=== PATIENT | female | born 1970 | race Caucasian/White ===

== ENCOUNTER 2021-07-26 08:53 | Inpatient (IN) | payer BC, MEDICARE, SELFPAY ==
[~2021-07-26] VITALS: Ht 165.1 cm; Wt 68.0 kg
[2021-07-26] VITALS (17 sets, daily range): BP systolic 130–192; BP diastolic 60–81
[2021-07-26] MEDS ORDERED: NS 1,000 ML IV ONE (09:00)
[2021-07-26 09:18] LABS: VENOUS BASE EXCESS -25.4 (-2.0-2.0); VENOUS HCO3 5.4 MEQ/L (23.0-27.0); VENOUS O2 SATURATION 86.5 % (60.0-80.0); VENOUS PARTIAL PRESSURE CO2 24.8 mmHg (38.0-50.0); VENOUS PARTIAL PRESSURE O2 70.8 mmHg (30.0-50.0); VENOUS PH 6.955 UNITS (7.330-7.430); VENOUS STANDARD HCO3 6.8 MEQ/L; VENOUS TOTAL CO2 6.2 MEQ/L (24.0-28.0)
[2021-07-26 09:25] LABS: BASO # 0.1 10^3/uL (0.0-0.2); BASO % 0.5 % (0.0-1.0); HEMATOCRIT 38.5 % (36.0-47.0); HEMOGLOBIN 11.7 g/dl (12.0-15.5); LYMPH # 2.1 10^3/uL (1.5-5.0); LYMPH % 8.2 % (24.0-44.0); MEAN CORPUSCULAR HEMOGLOBIN 30.7 pg (27.0-33.0); MEAN CORPUSCULAR HGB CONC 30.4 g/dl (32.0-36.5); MONO # 1.4 10^3/uL (0.0-0.8); MONO % 5.5 % (2.0-8.0); NEUTROPHILS # 21.2 10^3/uL (1.5-8.5); NEUTROPHILS % 84.6 % (36.0-66.0); PLATELET COUNT, AUTOMATED 480 10^3/uL (150-450); RED BLOOD COUNT 3.81 10^6/uL (4.00-5.40); WHITE BLOOD COUNT 25.1 10^3/uL (4.0-10.0)
[2021-07-26] MEDS ORDERED: INSULIN REGULAR IN 0.9 % NACL 100 UNIT in IV 1 EA IV SCH ×2 (09:30)
[2021-07-26] MEDS ORDERED: HumuLIN R (REGULAR) INSULIN (NovoLIN R) **100U/ML** PER UNIT IV ONE (09:30)
[2021-07-26] MEDS ORDERED: PIPERACILLIN/TAZOBACTAM SOD 4.5 GM in D5W MINI-BAG PLUS 50 ML IV ONE (09:30)
[2021-07-26] MEDS ORDERED: NS 1,250 ML in IV 1 EA IV ONE (09:30)
[2021-07-26] MEDS ORDERED: ISOVUE-370 76% 100ML VIAL As Ordered ONE (09:53)
[2021-07-26 09:54] LABS: CK-MB VALUE MASS 2.7 NG/ML (<3.6); MB/CK RELATIVE INDEX 4.43 (< OR =4)
[2021-07-26 10:01] LABS: RSV AMPLIFICATION NEGATIVE (NEGATIVE)
[2021-07-26 10:11] LABS: OSMOLALITY SERUM 346 MOSM/KG (275-295)
[2021-07-26 10:40] LABS: ACETONE/KETONE > 46.00 MG/DL (<2.81); ALBUMIN 3.6 GM/DL (3.2-5.2); ALT/SGPT 21 U/L (12-78); BILIRUBIN,DIRECT 0.2 MG/DL (0.0-0.2); BILIRUBIN,TOTAL 0.5 MG/DL (0.2-1.0); BLOOD UREA NITROGEN 33 MG/DL (7-18); CALCIUM LEVEL 10.7 MG/DL (8.5-10.1); CARBON DIOXIDE LEVEL 8 MEQ/L (21-32); CHLORIDE LEVEL 93 MEQ/L (98-107); CREATININE FOR GFR 2.25 MG/DL (0.55-1.30); ETHYL ALCOHOL (ETHANOL) < 0.003 % (0.000-0.010); GLOMERULAR FILTRATION RATE 24.3 (>51); GLUCOSE, FASTING 855 MG/DL (70-100); LIPASE 57 U/L (73-393); MAGNESIUM LEVEL 2.3 MG/DL (1.8-2.4); PHOSPHORUS LEVEL 8.5 MG/DL (2.5-4.9); POTASSIUM SERUM 5.5 MEQ/L (3.5-5.1); SODIUM LEVEL 130 MEQ/L (136-145); TOTAL PROTEIN 7.1 GM/DL (6.4-8.2)
[2021-07-26 11:37] LABS: VENOUS BASE EXCESS -28.1 (-2.0-2.0); VENOUS HCO3 4.6 MEQ/L (23.0-27.0); VENOUS PARTIAL PRESSURE CO2 26.1 mmHg (38.0-50.0); VENOUS PARTIAL PRESSURE O2 60.8 mmHg (30.0-50.0); VENOUS PH 6.861 UNITS (7.330-7.430); VENOUS STANDARD HCO3 5.2 MEQ/L; VENOUS TOTAL CO2 5.4 MEQ/L (24.0-28.0)
[2021-07-26] MEDS ORDERED: CALC500T38 PO (11:37)
[2021-07-26] MEDS ORDERED: FAMO1TAB11 PO (11:37)
[2021-07-26] MEDS ORDERED: LEVO88TA24 PO (11:37)
[2021-07-26] MEDS ORDERED: AMLO1TAB24 PO (11:37)
[2021-07-26] MEDS ORDERED: COLA100C5 PO (11:37)
[2021-07-26] MEDS ORDERED: METO1TAB7 PO (11:37)
[2021-07-26] MEDS ORDERED: HYDR-3911 PO (11:37)
[2021-07-26] MEDS ORDERED: FERR1TAB8 PO (11:37)
[2021-07-26] MEDS ORDERED: ADME100I2 SC (11:37)
[2021-07-26] MEDS ORDERED: BASA100I SC (11:37)
[2021-07-26] MEDS ORDERED: PANT-23 PO (11:37)
[2021-07-26] MEDS ORDERED: PATIENT COMMENT (11:38)
[2021-07-26] MEDS ORDERED: HOME MED LIST COMPLETE! XX SCH (11:40)
[2021-07-26] MEDS ORDERED: INSULIN IV RATE CHANGE DOCUMENTATION ML/HR XX SCH (11:50)
[2021-07-26 12:07] LABS: HEMOGLOBIN A1c 7.9 %
[2021-07-26 12:13] LABS: CALCIUM LEVEL 9.6 MG/DL (8.5-10.1); CREATININE FOR GFR 2.32 MG/DL (0.55-1.30); GLOMERULAR FILTRATION RATE 23.5 (>51); POTASSIUM SERUM 4.4 MEQ/L (3.5-5.1)
[2021-07-26] MEDS: INSULIN REGULAR IN 0.9 % NACL 100 UNIT in IV 1 EA IV SCH ×4 (12:25→19:08)
[2021-07-26] MEDS: NS 1,000 ML IV SCH ×2 (12:26→16:05)
[2021-07-26 12:45] LABS: AMPHETAMINES LEVEL URINE NEGATIVE (NEGATIVE); BARBITURATES URINE NEGATIVE (NEGATIVE); BENZODIAZEPINES URINE NEGATIVE (NEGATIVE); CANNABINOIDS URINE POSITIVE (NEGATIVE); COCAINE METABOLITE URINE POSITIVE (NEGATIVE); METHADONE URINE NEGATIVE (NEGATIVE); OPIATES URINE NEGATIVE (NEGATIVE); PHENCYCLIDINE URINE NEGATIVE (NEGATIVE)
[2021-07-26] MEDS ORDERED: SODIUM CHLORIDE 0.9% 1000ML IV ONE (12:45)
[2021-07-26] MEDS: PANTOPRAZOLE 40MG VIAL IV SCH (14:54)
[2021-07-26 15:14] LABS: VENOUS BASE EXCESS -20.8 (-2.0-2.0); VENOUS HCO3 6.7 MEQ/L (23.0-27.0); VENOUS O2 SATURATION 91.6 % (60.0-80.0); VENOUS PARTIAL PRESSURE CO2 20.8 mmHg (38.0-50.0); VENOUS PARTIAL PRESSURE O2 68.9 mmHg (30.0-50.0); VENOUS PH 7.124 UNITS (7.330-7.430); VENOUS STANDARD HCO3 9.2 MEQ/L; VENOUS TOTAL CO2 7.3 MEQ/L (24.0-28.0)
[2021-07-26] MEDS ORDERED: ONDANSETRON 4MG/2ML VIAL IV PRN (15:30)
[2021-07-26 15:51] LABS: CALCIUM LEVEL 9.9 MG/DL (8.5-10.1); CREATININE FOR GFR 1.91 MG/DL (0.55-1.30); GLOMERULAR FILTRATION RATE 29.4 (>51); PHOSPHORUS LEVEL 3.3 MG/DL (2.5-4.9); POTASSIUM SERUM 4.2 MEQ/L (3.5-5.1)
[2021-07-26] MEDS: INSULIN IV RATE CHANGE DOCUMENTATION ML/HR XX SCH ×6 (16:03→23:01)
[2021-07-26] MEDS: ACETAMINOPHEN TAB 650MG DOSE (2X325MG) PO PRN (16:58)
[2021-07-26] MEDS: NYSTATIN OINTMENT 15 GM TOP SCH (17:35)
[2021-07-26 20:11] LABS: CALCIUM LEVEL 9.7 MG/DL (8.5-10.1); CREATININE FOR GFR 1.62 MG/DL (0.55-1.30); GLOMERULAR FILTRATION RATE 35.5 (>51); POTASSIUM SERUM 3.7 MEQ/L (3.5-5.1)
[2021-07-26 20:19] LABS: ALBUMIN 2.9 GM/DL (3.2-5.2); BILIRUBIN,TOTAL 0.3 MG/DL (0.2-1.0); CALCIUM LEVEL 9.7 MG/DL (8.5-10.1); CREATININE FOR GFR 1.58 MG/DL (0.55-1.30); GLOMERULAR FILTRATION RATE 36.6 (>51); POTASSIUM SERUM 3.6 MEQ/L (3.5-5.1); TOTAL PROTEIN 6.1 GM/DL (6.4-8.2)
[2021-07-26] MEDS: KCL 20MEQ IN D5/0.45NS 1000ML 1,000 ML IV SCH (21:40)
[2021-07-26] MEDS ORDERED: POTASSIUM PHOSPHATE INJ 30 MMOL in D5W 500 ML IV ONE (22:00)
[2021-07-27] VITALS (21 sets, daily range): BP systolic 110–199; BP diastolic 52–86
[2021-07-27] MEDS: INSULIN IV RATE CHANGE DOCUMENTATION ML/HR XX SCH ×5 (00:06→09:06)
[2021-07-27 00:15] LABS: ABG BASE EXCESS -7.3 (-2.0-2.0); ABG HCO3 17.4 MEQ/L (22.0-26.0); ABG O2 SATURATION 91.3 % (95.0-99.0); ABG PARTIAL PRESSURE CO2 32.3 mmHg (35.0-45.0); ABG PARTIAL PRESSURE O2 59.6 mmHg (75.0-100.0); ABG STANDARD HCO3 18.4 MEQ/L (22.0-26.0); ABG TOTAL CO2 18.4 MEQ/L (22.0-29.0); ABG pH (ARTERIAL) 7.349 UNITS (7.350-7.450)
[2021-07-27 00:39] LABS: CALCIUM LEVEL 9.4 MG/DL (8.5-10.1); CREATININE FOR GFR 1.44 MG/DL (0.55-1.30); GLOMERULAR FILTRATION RATE 40.7 (>51); PHOSPHORUS LEVEL 2.6 MG/DL (2.5-4.9); POTASSIUM SERUM 3.6 MEQ/L (3.5-5.1)
[2021-07-27] MEDS: ACETAMINOPHEN TAB 650MG DOSE (2X325MG) PO PRN (01:07)
[2021-07-27] MEDS: KCL 20MEQ IN D5/0.45NS 1000ML 1,000 ML IV SCH ×2 (02:14→06:52)
[2021-07-27] MEDS ORDERED: CHLORASEPTIC SPRAY MT ONE (02:45)
[2021-07-27] MEDS: NYSTATIN OINTMENT 15 GM TOP SCH (04:05)
[2021-07-27 04:07] LABS: BASO % 0.1 % (0.0-1.0); HEMATOCRIT 27.5 % (36.0-47.0); LYMPH # 1.9 10^3/uL (1.5-5.0); LYMPH % 9.2 % (24.0-44.0); MEAN CORPUSCULAR HEMOGLOBIN 30.2 pg (27.0-33.0); MEAN CORPUSCULAR HGB CONC 33.5 g/dl (32.0-36.5); MEAN CORPUSCULAR VOLUME 90.2 fl (80.0-96.0); MONO % 10.7 % (2.0-8.0); NEUTROPHILS # 16.1 10^3/uL (1.5-8.5); NEUTROPHILS % 79.4 % (36.0-66.0); RED BLOOD COUNT 3.05 10^6/uL (4.00-5.40); WHITE BLOOD COUNT 20.3 10^3/uL (4.0-10.0)
[2021-07-27 04:11] LABS: MONO # 2.2 10^3/uL (0.0-0.8)
[2021-07-27 04:24] LABS: HEMOGLOBIN 9.2 g/dl (12.0-15.5); PLATELET COUNT, AUTOMATED 325 10^3/uL (150-450)
[2021-07-27 04:31] LABS: CALCIUM LEVEL 9.5 MG/DL (8.5-10.1); CREATININE FOR GFR 1.24 MG/DL (0.55-1.30); GLOMERULAR FILTRATION RATE 48.4 (>51); PHOSPHORUS LEVEL 2.9 MG/DL (2.5-4.9); POTASSIUM SERUM 3.6 MEQ/L (3.5-5.1)
[2021-07-27 06:40] LABS: CALCIUM LEVEL 9.7 MG/DL (8.5-10.1); CREATININE FOR GFR 1.17 MG/DL (0.55-1.30); GLOMERULAR FILTRATION RATE 51.7 (>51); POTASSIUM SERUM 3.6 MEQ/L (3.5-5.1)
[2021-07-27] MEDS ORDERED: LEVEMIR (INSULIN DETEMIR) 1 UNITS/0.01ML SC SCH (09:00)
[2021-07-27] MEDS: PANTOPRAZOLE 40MG VIAL IV SCH (09:05)
[2021-07-27] MEDS ORDERED: GLUCAGON INJ 1MG VIAL SC PRN (09:25)
[2021-07-27] MEDS ORDERED: GLUCOSE 4GM CHEW TABLET PO PRN (09:25)
[2021-07-27] MEDS: LEVOTHYROXINE 88MCG TABLET (0.088 MG) PO SCH (11:41)
[2021-07-27] MEDS: METOPROLOL SUCC (TopROL XL) 50MG **XL** TAB PO SCH (11:43)
[2021-07-27] MEDS: INSULIN LISPRO (NovoLOG) PER UNIT SC SCH ×2 (11:43→17:30)
[2021-07-27 12:17] LABS: CREATININE FOR GFR 1.03 MG/DL (0.55-1.30); GLOMERULAR FILTRATION RATE 59.9 (>51); POTASSIUM SERUM 3.8 MEQ/L (3.5-5.1)
[2021-07-27] MEDS: HEPARIN SOD (PORCINE) 5000UNITS/ML 1ML VIAL/SYRINGE SQ SCH ×2 (13:46→22:00)
[2021-07-27] MEDS ORDERED: FLUCONAZOLE 50MG TABLET PO ONE (17:00)
[2021-07-27] MEDS: DEXTROSE 50% 50 ML SYRINGE IV PRN (17:38)
[2021-07-27] MEDS ORDERED: DEXTROSE 50% 50 ML SYRINGE IV STA (17:45)
[2021-07-27] MEDS ORDERED: INSULIN LISPRO (NovoLOG) PER UNIT SC SCH (21:00)
[2021-07-27] MEDS ORDERED: MICONAZOLE-7 VAGINAL 2% CREAM 47.7GM PV SCH (21:00)
[2021-07-28] MEDS: HEPARIN SOD (PORCINE) 5000UNITS/ML 1ML VIAL/SYRINGE SQ SCH (05:37)
[2021-07-28] MEDS: LEVOTHYROXINE 88MCG TABLET (0.088 MG) PO SCH (05:37)
[2021-07-28 06:00] VITALS: BP 164/91
[2021-07-28] MEDS: DEXTROSE 50% 50 ML SYRINGE IV PRN (06:01)
[2021-07-28 07:04] LABS: BASO % 0.3 % (0.0-1.0); EOS % 0.4 % (0.0-3.0); HEMATOCRIT 29.5 % (36.0-47.0); LYMPH # 2.4 10^3/uL (1.5-5.0); LYMPH % 23.8 % (24.0-44.0); MEAN CORPUSCULAR HEMOGLOBIN 30.6 pg (27.0-33.0); MEAN CORPUSCULAR HGB CONC 33.9 g/dl (32.0-36.5); MEAN CORPUSCULAR VOLUME 90.2 fl (80.0-96.0); MONO # 0.8 10^3/uL (0.0-0.8); MONO % 7.7 % (2.0-8.0); NEUTROPHILS # 6.8 10^3/uL (1.5-8.5); NEUTROPHILS % 67.5 % (36.0-66.0); PLATELET COUNT, AUTOMATED 285 10^3/uL (150-450); RED BLOOD COUNT 3.27 10^6/uL (4.00-5.40)
[2021-07-28] MEDS: INSULIN LISPRO (NovoLOG) PER UNIT SC SCH ×2 (07:30→12:57)
[2021-07-28 07:33] LABS: BLOOD UREA NITROGEN 5 MG/DL (7-18); CALCIUM LEVEL 10.3 MG/DL (8.5-10.1); CARBON DIOXIDE LEVEL 25 MEQ/L (21-32); CHLORIDE LEVEL 107 MEQ/L (98-107); CREATININE FOR GFR 0.88 MG/DL (0.55-1.30); GLOMERULAR FILTRATION RATE > 60.0 (>51); GLUCOSE, FASTING 169 MG/DL (70-100); MAGNESIUM LEVEL 1.8 MG/DL (1.8-2.4); PHOSPHORUS LEVEL 2.3 MG/DL (2.5-4.9); POTASSIUM SERUM 3.4 MEQ/L (3.5-5.1); SODIUM LEVEL 141 MEQ/L (136-145)
[2021-07-28] MEDS ORDERED: POTASSIUM CHLORIDE 10MEQ SR TABLET PO ONE (08:00)
[2021-07-28 08:50] VITALS: BP 139/84
[2021-07-28] MEDS: PANTOPRAZOLE 40MG VIAL IV SCH (08:50)
[2021-07-28] MEDS: METOPROLOL SUCC (TopROL XL) 50MG **XL** TAB PO SCH (08:50)
[2021-07-28] MEDS ORDERED: LEVEMIR (INSULIN DETEMIR) 1 UNITS/0.01ML SC SCH ×2 (09:00)
[2021-07-28 10:00] VITALS: BP 126/81
[2021-07-28] MEDS ORDERED: BASA100I SC (11:39)
[2021-07-28 14:00] VITALS: BP 132/82
== END 2021-07-28 13:20 | disposition home or self-care (01) | DRG 420 ==
LOC: M ED 08:53 → M ED INP 11:46 → ENRESERV 13:32 → M ICU 14:19 → M MSPAV 07-27 18:46
PROVIDERS: ADMIT Internal Medicine Pulmonary Disease; ATTEND Family Medicine
DX: E11.10 Type 2 diabetes mellitus with ketoacidosis without coma (principal); I10 Essential (primary) hypertension; B37.3 Candidiasis of vulva and vagina; E03.9 Hypothyroidism, unspecified; R94.31 Abnormal electrocardiogram [ECG] [EKG]; D64.9 Anemia, unspecified; E11.649 Type 2 diabetes mellitus with hypoglycemia without coma; Z79.4 Long term (current) use of insulin; Z79.899 Other long term (current) drug therapy; Z91.11 Patient's noncompliance with dietary regimen; Z86.16 Personal history of COVID-19

== ENCOUNTER 2023-06-28 10:46 | Inpatient (IN) | payer MEDICAID, OTHER ==
[~2023-06-28] VITALS: Ht 165.1 cm; Wt 64.8 kg
[~2023-06-28 10:46] MED LIST: ACET-897 PO; ADME100I2 SC; AMLO1TAB24 PO; AMOX875T2 PO; BASA100I SC; CALC500T38 PO; COLA100C5 PO; FAMO1TAB11 PO; FERR1TAB8 PO; HYDR50TA46 PO; LEVO88TA24 PO; LISI5TAB11 PO; METO1TAB7 PO; PANT-23 PO; PATIENT COMMENT
[2023-06-28] MEDS: NS 1,000 ML IV ONE (11:33)
[2023-06-28 11:44] LABS: BASO % 0.2 % (0.0-1.0); EOS % 0.1 % (0.0-3.0); HEMATOCRIT 39.2 % (36.0-47.0); HEMOGLOBIN 13.1 g/dl (12.0-15.5); LYMPH # 1.8 10^3/uL (1.5-5.0); LYMPH % 10.4 % (24.0-44.0); MEAN CORPUSCULAR HEMOGLOBIN 30.8 pg (27.0-33.0); MEAN CORPUSCULAR HGB CONC 33.4 g/dl (32.0-36.5); MONO # 0.7 10^3/uL (0.0-0.8); MONO % 3.8 % (2.0-8.0); NEUTROPHILS # 14.9 10^3/uL (1.5-8.5); PLATELET COUNT, AUTOMATED 447 10^3/uL (150-450); RED BLOOD COUNT 4.26 10^6/uL (4.00-5.40); WHITE BLOOD COUNT 17.5 10^3/uL (4.0-10.0)
[2023-06-28] MEDS: ONDANSETRON 4MG 2ML VIAL IV ONE (12:00)
[2023-06-28] MEDS: PANTOPRAZOLE 40MG VIAL IV STA (12:01)
[2023-06-28 12:11] LABS: LIPASE 29 U/L (12-53)
[2023-06-28 12:12] LABS: MAGNESIUM LEVEL 2.1 MG/DL (1.8-2.4)
[2023-06-28 12:14] LABS: ALBUMIN 4.2 G/DL (3.2-5.2); ALKALINE PHOSPHATASE 148 U/L (46-116); ALT/SGPT 23 U/L (7.0-40); AST/SGOT 15 U/L (<34); BILIRUBIN,TOTAL 0.5 MG/DL (0.3-1.2); BLOOD UREA NITROGEN 22 MG/DL (9-23); CARBON DIOXIDE LEVEL 15 MMOL/L (20-31); CHLORIDE LEVEL 102 MMOL/L (98-107); CREATININE FOR GFR 0.89 MG/DL (0.55-1.30); GLOMERULAR FILTRATION RATE > 60.0 (>51); GLUCOSE, FASTING 195 MG/DL (60-100); POTASSIUM SERUM 4.4 MMOL/L (3.5-5.1); SODIUM LEVEL 138 MMOL/L (136-145); TOTAL PROTEIN 7.9 G/DL (5.7-8.2)
[2023-06-28 12:20] LABS: VENOUS BASE EXCESS -12.4 (-2.0-2.0); VENOUS HCO3 14.5 MMOL/L (23.0-27.0); VENOUS PARTIAL PRESSURE CO2 36.5 mmHg (38.0-50.0); VENOUS PARTIAL PRESSURE O2 42.9 mmHg (30.0-50.0); VENOUS PH 7.217 UNITS (7.330-7.430); VENOUS STANDARD HCO3 14.5 MMOL/L; VENOUS TOTAL CO2 15.6 MMOL/L (24.0-28.0)
[2023-06-28] MEDS: D5W/0.45% SODIUM CHLORIDE 1,000 ML IV ONE (12:45)
[2023-06-28] MEDS: KCL 10MEQ/100ML SWI (KRUN) 10 MEQ in IV 1 EA IV ONE (13:13)
[2023-06-28 13:26] LABS: HEMOGLOBIN A1c 7.8 % (4.0-6.0)
[2023-06-28 13:29] LABS: THYROID STIMULATING HORMONE 0.476 uIU/ML (0.55-4.78)
[2023-06-28] MEDS ORDERED: ONDANSETRON 4MG 2ML VIAL IV PRN (13:35)
[2023-06-28] MEDS: INSULIN REGULAR IN 0.9 % NACL 100 UNIT in IV 1 EA IV SCH (13:45)
[2023-06-28] MEDS: cefTRIAXone SOD 1 GM in D5W MINI-BAG PLUS 50 ML IV ONE (13:55)
[2023-06-28 14:00] LABS: VENOUS BASE EXCESS -14.8 (-2.0-2.0); VENOUS HCO3 11.8 MMOL/L (23.0-27.0); VENOUS O2 SATURATION 97.9 % (60.0-80.0); VENOUS PARTIAL PRESSURE CO2 30.2 mmHg (38.0-50.0); VENOUS PARTIAL PRESSURE O2 113.2 mmHg (30.0-50.0); VENOUS PH 7.208 UNITS (7.330-7.430); VENOUS STANDARD HCO3 13.2 MMOL/L; VENOUS TOTAL CO2 12.7 MMOL/L (24.0-28.0)
[2023-06-28] MEDS: LR 1,000 ML IV ONE (14:32)
[2023-06-28] MEDS: hydrALAZINE 20MG/ML 1ML VIAL IV PRN (14:36)
[2023-06-28 15:30] VITALS: TEMP 98.8; O2SAT 100
[2023-06-28] MEDS: INSULIN IV RATE CHANGE DOCUMENTATION ML/HR XX SCH (15:43)
[2023-06-28 15:45] VITALS: O2SAT 99
[2023-06-28] MEDS: POTASSIUM CHLORIDE INJ 40 MEQ in D5W/LR 1,000 ML IV SCH (15:58)
[2023-06-28 16:00] VITALS: O2SAT 99
[2023-06-28 16:15] VITALS: O2SAT 98
[2023-06-28 16:29] LABS: BLOOD UREA NITROGEN 18 MG/DL (9-23); CALCIUM LEVEL 10.6 MG/DL (8.5-10.1); CARBON DIOXIDE LEVEL 14 MMOL/L (20-31); CHLORIDE LEVEL 105 MMOL/L (98-107); CREATININE FOR GFR 0.79 MG/DL (0.55-1.30); GLOMERULAR FILTRATION RATE > 60.0 (>51); GLUCOSE, FASTING 188 MG/DL (60-100); PHOSPHORUS LEVEL 2.1 MG/DL (2.5-4.9); POTASSIUM SERUM 4.2 MMOL/L (3.5-5.1); SODIUM LEVEL 139 MMOL/L (136-145)
[2023-06-28] MEDS ORDERED: D10W 1,000 ML IV SCH (17:00)
[2023-06-28] MEDS: D10W 1,000 ML IV SCH (17:36)
[2023-06-28 20:00] VITALS: BP 168/70; TEMP 98.2; O2SAT 99
[2023-06-28 20:19] LABS: BLOOD UREA NITROGEN 16 MG/DL (9-23); CALCIUM LEVEL 10.6 MG/DL (8.5-10.1); CARBON DIOXIDE LEVEL 21 MMOL/L (20-31); CHLORIDE LEVEL 104 MMOL/L (98-107); CREATININE FOR GFR 0.72 MG/DL (0.55-1.30); GLOMERULAR FILTRATION RATE > 60.0 (>51); GLUCOSE, FASTING 220 MG/DL (60-100); PHOSPHORUS LEVEL 1.6 MG/DL (2.5-4.9); POTASSIUM SERUM 3.9 MMOL/L (3.5-5.1); SODIUM LEVEL 137 MMOL/L (136-145)
[2023-06-28] MEDS ORDERED: GLUCAGON INJ 1MG VIAL SC PRN (20:35)
[2023-06-28] MEDS ORDERED: DEXTROSE 50% 50ML SYRINGE IV PRN (20:35)
[2023-06-28] MEDS ORDERED: GLUCOSE 4 GM CHEW PO PRN (20:35)
[2023-06-28] MEDS: POTASSIUM PHOSPHATE INJ 20 MMOL in D5W 250 ML IV ONE (20:43)
[2023-06-28] MEDS: LEVEMIR (INSULIN DETEMIR) 1 UNITS/0.01ML SC ONE (20:52)
[2023-06-28] MEDS: INSULIN LISPRO (NovoLOG) PER UNIT SC SCH (21:00)
[2023-06-28] MEDS: LEVEMIR (INSULIN DETEMIR) 1 UNITS/0.01ML SC SCH (21:00)
[2023-06-28] MEDS: ENOXAPARIN 40MG/0.4ML SYRINGE (J1650 PER 10MG) SC SCH (21:00)
[2023-06-28 21:51] VITALS: BP 113/51; O2SAT 97
[2023-06-29] VITALS: BP 150/74; TEMP 98.8; O2SAT 97
[2023-06-29 00:21] LABS: BLOOD UREA NITROGEN 10 MG/DL (9-23); CALCIUM LEVEL 10.6 MG/DL (8.5-10.1); CARBON DIOXIDE LEVEL 24 MMOL/L (20-31); CHLORIDE LEVEL 103 MMOL/L (98-107); CREATININE FOR GFR 0.63 MG/DL (0.55-1.30); GLOMERULAR FILTRATION RATE > 60.0 (>51); GLUCOSE, FASTING 116 MG/DL (60-100); PHOSPHORUS LEVEL 2.5 MG/DL (2.5-4.9); POTASSIUM SERUM 4.3 MMOL/L (3.5-5.1); SODIUM LEVEL 134 MMOL/L (136-145)
[2023-06-29 04:10] VITALS: BP 166/79; TEMP 98.3; O2SAT 99
[2023-06-29 04:21] LABS: BLOOD UREA NITROGEN 10 MG/DL (9-23); CALCIUM LEVEL 10.7 MG/DL (8.5-10.1); CARBON DIOXIDE LEVEL 23 MMOL/L (20-31); CHLORIDE LEVEL 105 MMOL/L (98-107); CREATININE FOR GFR 0.64 MG/DL (0.55-1.30); GLOMERULAR FILTRATION RATE > 60.0 (>51); GLUCOSE, FASTING 143 MG/DL (60-100); PHOSPHORUS LEVEL 2.6 MG/DL (2.5-4.9); POTASSIUM SERUM 4.3 MMOL/L (3.5-5.1); SODIUM LEVEL 138 MMOL/L (136-145)
[2023-06-29] MEDS: LEVOTHYROXINE 88MCG TABLET (0.088 MG) PO SCH (05:52)
[2023-06-29 05:55] VITALS: BP 138/73; O2SAT 98
[2023-06-29] MEDS ORDERED: MED REC IN PROGRESS XX SCH (07:30)
[2023-06-29 08:00] VITALS: BP 159/74; TEMP 98.9; O2SAT 98
[2023-06-29] MEDS ORDERED: INSU100I48 INJ (08:21)
[2023-06-29] MEDS ORDERED: LISI5TAB11 PO (08:21)
[2023-06-29] MEDS ORDERED: PANT40TA29 PO (08:21)
[2023-06-29] MEDS ORDERED: MULT-110 PO (08:21)
[2023-06-29] MEDS ORDERED: INSU100I24 INJ (08:21)
[2023-06-29] MEDS ORDERED: HOME MED LIST COMPLETE! XX SCH (08:25)
[2023-06-29] MEDS: INSULIN LISPRO (NovoLOG) PER UNIT SC SCH ×2 (08:48→17:30)
[2023-06-29] MEDS ORDERED: PANTOPRAZOLE 40MG VIAL IV SCH (09:00)
[2023-06-29] MEDS: LEVEMIR (INSULIN DETEMIR) 1 UNITS/0.01ML SC SCH (09:50)
[2023-06-29] MEDS: lisinopriL 5 MG TAB PO SCH (09:51)
[2023-06-29 12:00] VITALS: BP 143/73; TEMP 99; O2SAT 97
[2023-06-29 12:58] LABS: BASO # 0.1 10^3/uL (0.0-0.2); BASO % 0.4 % (0.0-1.0); EOS # 0.1 10^3/uL (0.0-0.5); EOS % 0.6 % (0.0-3.0); HEMATOCRIT 33.2 % (36.0-47.0); HEMOGLOBIN 11.2 g/dl (12.0-15.5); MEAN CORPUSCULAR HEMOGLOBIN 30.3 pg (27.0-33.0); MEAN CORPUSCULAR HGB CONC 33.7 g/dl (32.0-36.5); MEAN CORPUSCULAR VOLUME 89.7 fl (80.0-96.0); MONO # 0.8 10^3/uL (0.0-0.8); MONO % 6.8 % (2.0-8.0); NEUTROPHILS # 8.4 10^3/uL (1.5-8.5); NEUTROPHILS % 67.8 % (36.0-66.0); PLATELET COUNT, AUTOMATED 340 10^3/uL (150-450); WHITE BLOOD COUNT 12.4 10^3/uL (4.0-10.0)
[2023-06-29 13:20] LABS: PTH INTACT 61.5 PG/ML (18.5-88.0)
[2023-06-29 13:24] LABS: THYROXINE (T4) 9.3 UG/DL (4.5-10.9); TOTAL 25(OH) VITAMIN D 26.9 NG/ML (20.0-100.0)
[2023-06-29 13:25] LABS: FREE T4 1.2 NG/DL (0.89-1.76)
[2023-06-29 20:11] VITALS: BP 136/78; TEMP 98; O2SAT 99
[2023-06-30 05:07] LABS: BASO % 0.6 % (0.0-1.0); EOS # 0.2 10^3/uL (0.0-0.5); EOS % 2.1 % (0.0-3.0); LYMPH # 3.5 10^3/uL (1.5-5.0); LYMPH % 48.6 % (24.0-44.0); MEAN CORPUSCULAR HEMOGLOBIN 30.1 pg (27.0-33.0); MEAN CORPUSCULAR HGB CONC 33.3 g/dl (32.0-36.5); MEAN CORPUSCULAR VOLUME 90.4 fl (80.0-96.0); MONO # 0.6 10^3/uL (0.0-0.8); NEUTROPHILS % 40.6 % (36.0-66.0); PLATELET COUNT, AUTOMATED 333 10^3/uL (150-450); RED BLOOD COUNT 3.65 10^6/uL (4.00-5.40); WHITE BLOOD COUNT 7.3 10^3/uL (4.0-10.0)
[2023-06-30 05:27] LABS: BLOOD UREA NITROGEN 11 MG/DL (9-23); CALCIUM LEVEL 10.9 MG/DL (8.5-10.1); CARBON DIOXIDE LEVEL 29 MMOL/L (20-31); CHLORIDE LEVEL 102 MMOL/L (98-107); CREATININE FOR GFR 0.68 MG/DL (0.55-1.30); GLOMERULAR FILTRATION RATE > 60.0 (>51); GLUCOSE, FASTING 60 MG/DL (60-100); MAGNESIUM LEVEL 1.8 MG/DL (1.8-2.4); SODIUM LEVEL 138 MMOL/L (136-145)
[2023-06-30 05:59] VITALS: BP 160/81; TEMP 97.8; O2SAT 99
[2023-06-30 08:00] VITALS: BP 151/79; TEMP 97.5; O2SAT 99
[2023-06-30 09:14] VITALS: BP 151/79
[2023-06-30] MEDS: LEVEMIR (INSULIN DETEMIR) 1 UNITS/0.01ML SC ONE (09:14)
[2023-06-30] MEDS ORDERED: LISI10TA22 PO (10:58)
== END 2023-06-30 11:50 | disposition home or self-care (01) | DRG 420 ==
LOC: M ED 10:46 → M ED INP 13:24 → M ICU 15:17
PROVIDERS: ADMIT Internal Medicine Pulmonary Disease; ATTEND Internal Medicine Pulmonary Disease
DX: E11.10 Type 2 diabetes mellitus with ketoacidosis without coma (principal); E83.52 Hypercalcemia; I10 Essential (primary) hypertension; E03.9 Hypothyroidism, unspecified; Z79.4 Long term (current) use of insulin; Z79.890 Hormone replacement therapy; Z79.899 Other long term (current) drug therapy

== ENCOUNTER 2023-10-20 01:33 | Emergency (ER) | payer MEDICAID, OTHER ==
[~2023-10-20] VITALS: Ht 165.1 cm; Wt 76.6 kg
[~2023-10-20 01:33] MED LIST changes: +INSU100I24 INJ; +INSU100I48 INJ; +LISI10TA22 PO; +MULT-110 PO; +PANT40TA29 PO
[2023-10-20 01:57] LABS: VENOUS BASE EXCESS -2.4 (-2.0-2.0); VENOUS HCO3 23.8 MMOL/L (23.0-27.0); VENOUS O2 SATURATION 65.8 % (60.0-80.0); VENOUS PARTIAL PRESSURE O2 34.2 mmHg (30.0-50.0); VENOUS PH 7.323 UNITS (7.330-7.430); VENOUS STANDARD HCO3 21.8 MMOL/L; VENOUS TOTAL CO2 25.3 MMOL/L (24.0-28.0)
[2023-10-20 01:58] VITALS: TEMP 97.9
[2023-10-20 02:04] LABS: BASO # 0.1 10^3/uL (0.0-0.2); BASO % 0.3 % (0.0-1.0); EOS # 0.3 10^3/uL (0.0-0.5); EOS % 1.3 % (0.0-3.0); HEMOGLOBIN 11.2 g/dl (12.0-15.5); LYMPH % 13.9 % (24.0-44.0); MEAN CORPUSCULAR HEMOGLOBIN 31.3 pg (27.0-33.0); MEAN CORPUSCULAR HGB CONC 32.9 g/dl (32.0-36.5); MONO # 1.7 10^3/uL (0.0-0.8); MONO % 7.8 % (2.0-8.0); NEUTROPHILS # 16.1 10^3/uL (1.5-8.5); NEUTROPHILS % 75.8 % (36.0-66.0); PLATELET COUNT, AUTOMATED 312 10^3/uL (150-450); RED BLOOD COUNT 3.58 10^6/uL (4.00-5.40); WHITE BLOOD COUNT 21.3 10^3/uL (4.0-10.0)
[2023-10-20 02:25] LABS: ACETONE/KETONE 0.11 MMOL/L (0.02-0.27); ALBUMIN 3.6 G/DL (3.2-5.2); BILIRUBIN,DIRECT 0.1 MG/DL (<0.4); BILIRUBIN,TOTAL 0.4 MG/DL (0.3-1.2); TOTAL PROTEIN 6.9 G/DL (5.7-8.2)
[2023-10-20 02:33] LABS: HEMOGLOBIN A1c 7.9 % (4.0-6.0)
[2023-10-20] MEDS ORDERED: DEXTROSE 50% 50ML SYRINGE As Ordered ONE (03:44)
[2023-10-20] MEDS: DEXTROSE 50% 50ML SYRINGE IV STA ×2 (03:49)
[2023-10-20 06:30] VITALS: BP 123/56; O2SAT 98
== END 2023-10-20 07:09 | disposition home or self-care (01) ==
LOC: M ED 01:33 → EDBD 01:33 → M ED 07:09
DX: E11.649 Type 2 diabetes mellitus with hypoglycemia without coma (principal); I45.10 Unspecified right bundle-branch block; F10.10 Alcohol abuse, uncomplicated; Z79.1 Long term (current) use of non-steroidal anti-inflammatories (NSAID); Z79.4 Long term (current) use of insulin; Z79.810 Long term (current) use of selective estrogen receptor modulators (SERMs)